=== PATIENT | female | born 1965 | race Caucasian/White ===

== ENCOUNTER 2022-01-14 12:42 | Outpatient (CLI) | payer BC | END 2022-01-14 12:43 | disposition home or self-care (01) | LOC: CSHCT 12:42 | PROVIDERS: ATTEND Orthopaedic Surgery | DX: M43.06 Spondylolysis, lumbar region (principal); M51.27 Other intervertebral disc displacement, lumbosacral region; M54.16 Radiculopathy, lumbar region; M47.816 Spondylosis without myelopathy or radiculopathy, lumbar region; M48.061 Spinal stenosis, lumbar region without neurogenic claudication | CPT/HCPCS: 72131 ==